=== PATIENT | male | born 1965 | race African-American/Black ===

== ENCOUNTER 2018-11-03 20:33 | Inpatient (IN) | payer OTHER ==
[~2018-11-03] VITALS: Ht 182.9 cm; Wt 84.0 kg
[2018-11-03 20:36] VITALS: BP 145/79
[2018-11-03] MEDS ORDERED: PROSCAR 5MG TABL5 MG PO (20:40)
[2018-11-03 20:53] LABS: URINE BILIRUBIN NEGATIVE (Negative); URINE BLOOD NEGATIVE (Negative); URINE CLARITY CLEAR; URINE COLOR YELLOW; URINE GLUCOSE-RANDOM* NEGATIVE (Negative); URINE KETONES NEGATIVE (Negative); URINE LEUKOCYTES-REFLEX NEGATIVE (Negative); URINE NITRITE-REFLEX NEGATIVE (Negative); URINE PROTEIN (DIPSTICK) 1+ (Negative)
[2018-11-03 21:01] LABS: CASTS None Seen /LPF (None Seen); CRYSTALS None Seen /LPF (None Seen); SQUAMOUS 0-3 Few /LPF (0-3); URINE WBC-REFLEX None Seen /HPF (0-5)
[2018-11-03 21:02] LABS: BACTERIA-REFLEX 1-9 Few /HPF (None Seen); URINE RBC 0-2 Rare /HPF (0-2)
[2018-11-03 22:25] LABS: HEMATOCRIT 43.3 % (42.0-52.0); HEMOGLOBIN 14.3 gm/dL (14.0-18.0); MCH 28.3 pg (26.0-34.0); MCHC 33.1 g/dL (28.0-37.0); MCV 85.4 fL (80.0-100.0); PLATELET COUNT 204 thou/uL (150-400); RBC 5.06 mil/uL (4.50-6.00); RDW 12.7 % (10.5-14.5); WBC 22.5 thou/uL (4.0-11.0)
[2018-11-03 22:33] LABS: CALCIUM 8.6 mg/dL (8.5-10.1); CREATININE 1.1 mg/dL (0.7-1.3); POTASSIUM 3.8 mmol/L (3.5-5.1)
[2018-11-03 22:39] LABS: ALBUMIN 3.9 g/dL (3.4-5.0); TOTAL BILIRUBIN 1.3 mg/dL (<0.1-1.0); TOTAL PROTEIN 7.6 g/dL (6.4-8.2)
[2018-11-03 22:59] LABS: ABSOLUTE NEUTROPHILS 20.9 thou/uL (1.4-8.2)
[2018-11-03 23:00] LABS: ANISOCYTOSIS 1+; PLATELET ESTIMATE NORMAL; POIKILOCYTOSIS 1+; POLYCHROMASIA 1+
[2018-11-04 05:00] VITALS: BP 176/76
[2018-11-04] MEDS ORDERED: HYDROXYCHLOROQ200 M1 PO (05:46)
--- NOTE | 2018-11-04 06:18 | NUR ---
ADMISSION NOTED: ADMITTED FROM ER IN FAIR CONDITION. ADMISSION HX AND ASSESSMENT COMPLETED AND DOCUMENTED. MEDICATED FOR PAIN, AND FEVER. UP AD SHANIA. VSS. IVF INFUSING. PT EDUCATED ABOUT CALL LIGHT AND UNIT. CONSENTS SIGNED. WILL CONTINUE TO MONITOR
[2018-11-04 07:29] VITALS: BP 141/78
[2018-11-04 14:28] VITALS: BP 161/75
--- NOTE | 2018-11-04 15:01 | NUR ---
PT ADMITTED RELATED TO FEVER, LEUKOCYTOSIS. CM REVIEWED CHART AND SPOKE WITH CARE TEAM. CM MET WITH PT AT BEDSIDE THIS DAY. PT IS A&O X4. CM ROLE INTRODUCED. PT INDICATED HE LIVES IN A HOUSE WITH HIS WITH 7 STEPS TO ETNER AND 7 STEPS INSIDE. 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 PT INDICATED NO DME OR HH HX. PT INDICATED HE PLANS TO DC HOME ONCE MEDICALLY STABLE. CM TO FOLLOW INDICATED WITH DC PLANNING.
[2018-11-04 19:14] VITALS: BP 143/84
--- NOTE | 2018-11-04 20:39 | NUR ---
ASSUMED CARE OF PATIENT AT 0715, PATIENT ALERT AND ORIENTED X 4. UP WITH SBA TO BATHROOM. DENIES PAIN, BUT C/O PAIN WITH LEFT LEG, RECEIVED MORPHINE 4 MG IV X 1 AT THE END OF THE SHIFT. DR NESS HERE THIS ATERNOON, PATIENT HAS CELLULITIS LEFT LEG, ORDER FOR IV ANTIOBIOTICS, ANTI-FUNGAL CREAM, AND K-PAD, NO K-PAD AVAILABLE AT THIS TIME, ALSO ELEVATE LEFT LEG. PATIENT HAS RIGHT AC IV WITH NS AT 125CC.HR, ALSO RECIEVED 1 ANTIBIOTIC THIS SHIFT. APPETITE NOT GOOD, PATIENT ATE BREAKFAST, BUT NO LUNCH/DINNER. PATIENT ENCOURAGED YO DRINK FLUIDS. WILL CONTINUE TO MONITOR.
[2018-11-05 04:01] VITALS: BP 161/72
[2018-11-05 08:00] VITALS: BP 159/88
--- NOTE | 2018-11-05 08:15 | NUR ---
Assumed care at 1845. Pt resting in bed. AOX4. VSS. Gave tylenol onetime for elevated temp. Applied anti fungal cream to both feet. Left leg elevated on pillow. No identified needs at the moment. Call light within reach. Will continue to monitor.
[2018-11-05 10:31] LABS: HEMATOCRIT 38.1 % (42.0-52.0); HEMOGLOBIN 12.7 gm/dL (14.0-18.0); MCHC 33.2 g/dL (28.0-37.0); MCV 84.2 fL (80.0-100.0); RBC 4.53 mil/uL (4.50-6.00); RDW 12.6 % (10.5-14.5); WBC 9.2 thou/uL (4.0-11.0)
--- NOTE | 2018-11-05 13:07 | NUR ---
TOWARDS POC PT A/O X4, VSS, AFEBRILE. PT BLE ELEVATED TO BED. NO CONCERNS VOICED. WILL CONTINUE TO MONITOR.
[2018-11-05 13:50] VITALS: BP 144/82
[2018-11-05 20:56] VITALS: BP 131/73
--- NOTE | 2018-11-06 07:15 | NUR ---
ASSUMED CARE AROUND 1900. AXOX4. LLE SWELLING AND PAIN PERSISTS. POSITIVE FOR NELLY'S SIGN. REPORTED TO APARTMENT COORDINATOR HEEL SEAT FILLER. US LLE ORDERED. VSS. AFEBRILE. CARE TRANSFERRED TO DAY RN AT THIS TIME.
[2018-11-06 07:25] VITALS: BP 153/80
[2018-11-06] MEDS ORDERED: KEFLEX500 M1 PO (09:57)
[2018-11-06] MEDS ORDERED: GABAPENTIN 100100 MG PO (09:57)
[2018-11-06 11:18] VITALS: BP 153/80
--- NOTE | 2018-11-06 12:32 | NUR ---
PT A&OX4, VSS, DENIES PAIN. NO SIGNS OF DISTRESS AT THIS TIME. PATIENT LLE IS WARM, CELLULITIS DX. LLE HAS BEEN ELEVATED. PATIENT DISCHARGED HOME WITH SPOUSE, PT VERBALIZED UNDERSTANDING OF DISEASE PROCESS, PRESCIPTIONS, AND DISCHARGE PAPERWORK. ALL BELONGINGS WITH PATIENT AND IV REMOVED.
--- NOTE | 2018-11-06 16:39 | HC ---
[facility] [address] CONSULTATION Name: SERGO MUNOZ Room #: 460-P [facility] IN M.R.#: [id number] Admission: 11/04/18 ������������������ Attend Phys: Dimitri Vivar Discharge: 11/06/18 ������������������ Date of : 63 Report #: [id number] THIS REPORT FOR: //name// CC: Dimitri Downeyen Alexys DATE OF SERVICE: 11/04/2018 REASON FOR CONSULTATION: I was asked to evaluate concerning fever, myalgias and headache. HISTORY OF PRESENT ILLNESS: The patient was a 53-year-old fairly active individual with underlying history of discoid lupus, who has been on Plaquenil. Noted acute onset of fever, chills, myalgias, arthralgias, headache, abdominal discomfort, nausea. Persisted for approximately 10 hours and the patient presented to the Emergency Room when he was not getting any better. He has had some low back pain over the last several weeks with some radicular features to his left thigh region. He has been seeing a chiropractor. Otherwise, he has not been feeling well before this event. He has had some left groin tenderness over the last 24-48 hours. No injuries. No travel. No animal exposure. 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 No HIV risk factors. REVIEW OF SYSTEMS: Reports some tenderness to his left pretibial leg. No bleeding disorder. No photophobia. No mucosal complaints. No pharyngitis complaints. No pleuritic chest pain, cough or sputum production. Although he has been nauseated, there has been no vomiting. He has felt bloated. No other abdominal pain or flank pain. No dysuria or frequency. No hematuria. Full 10-point review was negative other than what is described above. ALLERGIES: None known. MEDICATIONS: As noted on his MAR including hydroxychloroquine and finasteride. PAST MEDICAL HISTORY: Pneumonia age 4, he had a trach at that time; discoid lupus, bilateral Achilles tendon repairs, herniorrhaphy. He has had a periumbilical hernia repair, left ACL repair, BPH. FAMILY HISTORY: Noncontributory. SOCIAL HISTORY: Nonsmoker, no significant alcohol intake. PHYSICAL EXAMINATION: VITAL SIGNS: Afebrile. His temperature was 99 degrees, hemodynamically stable. GENERAL: Alert and cooperative and pleasant, in no acute distress. SKIN: With evidence of cellulitis left pretibial skin with extension to his [facility] [address] [place] [address] CONSULTATION Name: SERGO MUNOZ Room #: 460-P [facility].#: [id number] Admission: 11/04/18 ������������������ Attend Phys: Dimitri Vivar Discharge: 11/06/18 ������������������ Date of : 63 Report #: [id number] medial thigh and left groin. There was palpable node in the left groin, which was tender. Mild tinea pedis. EYES: Without scleral icterus. MOUTH: Without mucositis. NECK: Supple. LUNGS: Clear. HEART: Regular, without murmur, gallop or rub. ABDOMEN: Soft, nontender, no hepatosplenomegaly or mass. GENITOURINARY: External genitalia unremarkable without rash or lesion. RECTAL: Not performed. EXTREMITIES: As noted. NEUROLOGIC: Cranial nerves intact. Strength in upper and lower extremities is normal. Mood normal. LABORATORY STUDIES: Reviewed. Creatinine 1.1. Liver function tests normal. Hemoglobin 14.3, WBC 22.5, platelet count 204,000. Differential with 84% segs, 9% bands. Urinalysis unremarkable. Blood cultures are pending, negative thus far. CT scan of the abdomen and pelvis, prominent left inguinal node. IMPRESSION: A 53-year-old with: 1. Left lower extremity cellulitis, lymphangitis with associated fever, leukocytosis, suspect streptococcal infection. 2. Tinea pedis. 3. Discoid lupus. RECOMMENDATIONS: 1. We will continue IV antibiotic therapy with cefazolin. 2. Follow up laboratory studies. 3. Await blood cultures. 4. Topical antifungal agent for both feet. 5. Elevation and heat to the left lower leg. ��������������������������������������������� <ELECTRONICALLY SIGNED> ���������������������������������������� By: Ever Nielson MD ��������������������������������������������� 11/06/18 [id number] Ever Nielson MD /nt
== END 2018-11-06 13:00 | disposition home or self-care (01) | DRG 872 ==
LOC: ER 20:33 → EROBS 11-04 03:41 → 4W 11-04 03:41 → ENTRNSPT 11-06 12:26 → EDTRNSPTSTS 11-06 12:27 → 4W 11-06 13:00
PROVIDERS: Emergency Medicine; Nurse Practitioner Family; ADMIT Hospitalist
DX: A41.9 Sepsis, unspecified organism (principal); L03.116 Cellulitis of left lower limb; N40.0 Benign prostatic hyperplasia without lower urinary tract symptoms; I89.1 Lymphangitis; B35.3 Tinea pedis; L93.0 Discoid lupus erythematosus; L30.9 Dermatitis, unspecified; B96.89 Other specified bacterial agents as the cause of diseases classified elsewhere; Z79.899 Other long term (current) drug therapy; Z87.01 Personal history of pneumonia (recurrent)
CPT/HCPCS: 10040

== ENCOUNTER → 2019-01-06 | Outpatient (CLI) | payer OTHER ==
[~2019-01-06] MED LIST: GABAPENTIN 100100 MG PO; HYDROXYCHLOROQ200 M1 PO; KEFLEX500 M1 PO; PROSCAR 5MG TABL5 MG PO
== END ==
LOC: RAD 10:22
DX: M51.16 Intervertebral disc disorders with radiculopathy, lumbar region (principal); M48.061 Spinal stenosis, lumbar region without neurogenic claudication; M12.88 Other specific arthropathies, not elsewhere classified, other specified site

== ENCOUNTER → 2019-01-25 | Outpatient (CLI) | payer OTHER | LOC: MRI 01-19 12:07 | DX: M40.46 Postural lordosis, lumbar region (principal); M43.16 Spondylolisthesis, lumbar region; M51.16 Intervertebral disc disorders with radiculopathy, lumbar region; M48.062 Spinal stenosis, lumbar region with neurogenic claudication ==